=== PATIENT | male | born 1955 | race Two or more races ===

== ENCOUNTER → 2020-02-15 | Emergency (ER) | payer OTHER ==
[~2020-02-15] VITALS: Ht 172.7 cm; Wt 63.0 kg
[2020-02-16 02:24] LABS: Basophils # (auto) 0 10 ^3/uL (0-0.2); Eosinophils # (auto) 0.1 10 ^3/uL (0-0.8); Lymphocytes # (auto) 0.4 10 ^3/uL (0.4-5.4)
[2020-02-16 02:26] LABS: Basophils % (auto) 0.5 % (0.0-2.0); Eosinophils % (auto) 3.2 % (0.0-7.0); Hematocrit 45.4 % (41.0-53.0); Hemoglobin 15.9 g/dL (13.5-17.5); Lymphocytes % (auto) 11.7 % (10.0-50.0); Mean Corpuscular Hemoglobin 41.2 pg (28.0-32.0); Mean Corpuscular Hgb Conc. 35.1 g/dL (32.0-36.0); Mean Corpuscular Volume 117.5 fL (80.0-100.0); Monocytes # (auto) 0.3 10 ^3/uL (0-1.3); Monocytes % (auto) 7.3 % (0.0-12.0); Neutrophils # (auto) 2.7 10 ^3/uL (1.6-8.6); Neutrophils % (auto) 77.3 % (37.0-80.0); Nucleated Red Blood Cells % 0.2 %; Platelet Count (auto) 72 10^3/uL (140-450); Red Blood Cells 3.86 10^6/uL (4.5-5.90); Red Cell Distribution Width 16.2 % (11.8-14.3); White Blood Cell 3.5 10^3/uL (4.4-10.8)
[2020-02-16 02:39] LABS: Albumin 2.1 g/dL (3.4-5.0); Amylase 76 U/L (25-115); Anion Gap 5 (5-15); BUN/Creatinine Ratio 14.3; Blood Urea Nitrogen 11 mg/dL (7-18); Calcium 7.3 mg/dL (8.5-10.1); Carbon Dioxide 20 mmol/L (21-32); Chloride 112 mmol/L (98-107); GFR African American 130 mL/min; GFR Non-African American 108 mL/min; Glucose 80 mg/dL (74-106); Lipase 152 U/L (73-393); Potassium 3.9 mmol/L (3.5-5.1); Sodium 137 mmol/L (136-145)
[2020-02-16 02:43] LABS: Alanine Aminotransferase 28 U/L (16-61); Alkaline Phosphatase 136 U/L (45-117); Aspartate Aminotransferase 20 U/L (15-37); Bilirubin, Total 2.4 mg/dL (0.2-1.0); Total Protein 6.2 g/dL (6.4-8.2)
[2020-02-16 04:37] LABS: Urine Bacteria FEW /hpf (None Seen); Urine Mucus FEW (None Seen); Urine WBC 137 /hpf (0 - 3)
[2020-02-16 04:39] LABS: Urine Blood 3+ /uL (Negative); Urine Specific Gravity 1.018 (1.001-1.035)
[2020-02-16 06:27] LABS: INR 1.56 (0.9-1.15); Partial Thromboplastin Time 57.8 sec (23.64-32.05)
[2020-02-16 07:36] VITALS: BP 88/61
== END | disposition home or self-care (01) ==
LOC: ER 22:56
DX: D68.32 Hemorrhagic disorder due to extrinsic circulating anticoagulants (principal); K74.60 Unspecified cirrhosis of liver; J44.9 Chronic obstructive pulmonary disease, unspecified
CPT/HCPCS: 36415; 80053; 81001; 82150; 83690; 83735; 85025; 85610; 85730

== ENCOUNTER 2021-07-16 08:11 | Inpatient (IN) | payer OTHER ==
[~2021-07-16] VITALS: Ht 175.3 cm; Wt 56.0 kg
[~2021-07-16 08:11] MED LIST: AMOX500T86 PO
[2021-07-16] MEDS ORDERED: DexAMETHasone SOD PHOS 10MG/1ML VIAL INJ IV ONE ×2 (08:30→11:30)
[2021-07-16] MEDS ORDERED: cefTRIAXone 1GM/50ML D5W 50 ML IV ONE (08:30)
[2021-07-16] MEDS ORDERED: HYDROcodone-ACET 5/325MG TAB PO ONE (08:45)
[2021-07-16 10:21] LABS: Basophils # (auto) 0 10 ^3/uL (0-0.2); Eosinophils # (auto) 0 10 ^3/uL (0-0.8); Eosinophils % (auto) 0.1 % (0.0-7.0); Lymphocytes # (auto) 0.1 10 ^3/uL (0.4-5.4); Monocytes # (auto) 0.3 10 ^3/uL (0-1.3)
[2021-07-16 10:25] LABS: Basophils % (auto) 0.2 % (0.0-2.0); Hematocrit 34.6 % (41.0-53.0); Hemoglobin 12.2 g/dL (13.5-17.5); Lymphocytes % (auto) 4.6 % (10.0-50.0); Mean Corpuscular Hemoglobin 40.7 pg (28.0-32.0); Mean Corpuscular Hgb Conc. 35.2 g/dL (32.0-36.0); Mean Corpuscular Volume 115.7 fL (80.0-100.0); Monocytes % (auto) 10.4 % (0.0-12.0); Neutrophils # (auto) 2.4 10 ^3/uL (1.6-8.6); Neutrophils % (auto) 84.7 % (37.0-80.0); Nucleated Red Blood Cells % 0.1 %; Red Blood Cells 2.99 10^6/uL (4.5-5.90); Red Cell Distribution Width 17.4 % (11.8-14.3); White Blood Cell 2.9 10^3/uL (4.4-10.8)
[2021-07-16 10:37] LABS: INR 1.54 (0.9-1.15); Partial Thromboplastin Time 40.9 sec (23.6-33.0)
[2021-07-16 10:41] LABS: Albumin 1.6 g/dL (3.4-5.0); Calcium 7.7 mg/dL (8.5-10.1)
[2021-07-16 10:50] LABS: BUN/Creatinine Ratio 20.2; Bilirubin, Total 1.5 mg/dL (0.2-1.0); CRP High Sensitivity 3.5 mg/dL (< 0.3); Total Protein 5.4 g/dL (6.4-8.2)
[2021-07-16 10:50] LABS: Lactic Acid w/Reflex 2.1 mmol/L (0.4-2.0)
[2021-07-16] MEDS ORDERED: NITROGLYCERIN 0.4 MG SL TAB SL PRN (11:00)
[2021-07-16] MEDS ORDERED: MORPHINE SULFATE INJECTION 2 MG/ML SYRG IV PRN (11:00)
[2021-07-16] MEDS ORDERED: AZITHROMYCIN 500MG/ 250ML 250 ML IV ONE (11:30)
[2021-07-16] MEDS: SODIUM CHLOR 0.9% PF (SALINE LOCK) 10ML VIAL/SYR IV SCH ×2 (11:56→22:09)
[2021-07-16 13:58] LABS: Lactic Acid w/Reflex 2.3 mmol/L (0.4-2.0)
[2021-07-16] MEDS ORDERED: ALBUMIN 25% 50 ML IV ONE (14:00)
[2021-07-16] MEDS ORDERED: REMDESIVIR PER PHARMACY 0 ML IV SCH (14:30)
[2021-07-16] MEDS ORDERED: LIDOCAINE 2%HCL (LOCAL ANESTH.) INJ 20ML MDV ONE (14:39)
[2021-07-16] MEDS ORDERED: MIDAZOLAM HCL 2MG/2ML 2ml VIAL (1mg/ml) ONE (14:44)
[2021-07-16] MEDS ORDERED: fentaNYL CITRATE 100 MCG/2 ML VL ONE (14:44)
[2021-07-16] MEDS ORDERED: REMDESIVIR 200 MG in NS 210ml LOADING DOSE ADULT IV ONE (15:30)
[2021-07-16 17:08] LABS: Urine Bacteria NONE SEEN /hpf (None Seen); Urine Blood Negative /uL (Negative); Urine Mucus FEW (None Seen); Urine Specific Gravity 1.028 (1.001-1.035); Urine WBC 2 /hpf (0 - 3)
[2021-07-16 17:19] LABS: Amphetamine Screen, Urine NEGATIVE (NEGATIVE); Barbiturate Scree,Urine NEGATIVE (NEGATIVE); Benzodiazephine Screen, Urine NEGATIVE (NEGATIVE); Cannabinoid Screen, Urine NEGATIVE (NEGATIVE); Cocaine Screen, Urine NEGATIVE (NEGATIVE); Opiate Scree,Urine POSITIVE (NEGATIVE); Phencyclidine Screen, Urine NEGATIVE (NEGATIVE)
[2021-07-16] MEDS: ASCORBIC ACID 500 MG TAB PO SCH (22:22)
[2021-07-17] MEDS: DOPamine 1600MCG/ML D5W 250 ML IV SCH ×2 (04:00→20:54)
[2021-07-17 06:56] LABS: Basophils # (auto) 0 10 ^3/uL (0-0.2); Eosinophils # (auto) 0 10 ^3/uL (0-0.8); Lymphocytes # (auto) 0.2 10 ^3/uL (0.4-5.4); Mean Corpuscular Hgb Conc. 34.3 g/dL (32.0-36.0); Monocytes # (auto) 0.3 10 ^3/uL (0-1.3); White Blood Cell 4.4 10^3/uL (4.4-10.8)
[2021-07-17 06:58] LABS: Basophils % (auto) 0.2 % (0.0-2.0); Hematocrit 38.8 % (41.0-53.0); Hemoglobin 13.3 g/dL (13.5-17.5); Lymphocytes % (auto) 4.2 % (10.0-50.0); Mean Corpuscular Hemoglobin 39.2 pg (28.0-32.0); Mean Corpuscular Volume 114.2 fL (80.0-100.0); Monocytes % (auto) 6.2 % (0.0-12.0); Neutrophils % (auto) 89.4 % (37.0-80.0); Red Cell Distribution Width 17.6 % (11.8-14.3)
[2021-07-17] MEDS: SODIUM CHLOR 0.9% PF (SALINE LOCK) 10ML VIAL/SYR IV SCH ×3 (07:03→22:06)
[2021-07-17 07:14] LABS: Albumin 1.9 g/dL (3.4-5.0); Calcium 7.3 mg/dL (8.5-10.1); Potassium 4.4 mmol/L (3.5-5.1)
[2021-07-17 07:17] LABS: BUN/Creatinine Ratio 20.8; Bilirubin, Total 1.4 mg/dL (0.2-1.0); Total Protein 5.8 g/dL (6.4-8.2)
[2021-07-17] MEDS: cefTRIAXone 1GM/50ML D5W 50 ML IV SCH (09:32)
[2021-07-17] MEDS: DexAMETHasone SOD PHOS 10MG/1ML VIAL INJ IV SCH (09:32)
[2021-07-17] MEDS: ASCORBIC ACID 500 MG TAB PO SCH ×2 (09:34→23:22)
[2021-07-17] MEDS: CHOLECALCIFEROL (VITD3) 2,000 UNIT CAP/TAB PO SCH (09:34)
[2021-07-17] MEDS: ZINC SULFATE 220mg CAP or TAB PO SCH (09:34)
[2021-07-17] MEDS: AZITHROMYCIN 500MG/ 250ML 250 ML IV SCH (10:54)
[2021-07-17] MEDS: REMDESIVIR 100mg 100 MG in SODIUM CHL 0.9% 230 ML IV SCH (16:04)
[2021-07-17] MEDS ORDERED: Ensure HIGH Protein Chocolate 8oz Bottle PO ONE (18:30)
[2021-07-18] MEDS: TEMAZEPAM 15 MG CAP PO PRN ×2 (01:19→23:20)
[2021-07-18] MEDS: SODIUM CHLOR 0.9% PF (SALINE LOCK) 10ML VIAL/SYR IV SCH ×3 (06:08→20:49)
[2021-07-18 07:14] LABS: Calcium 7.9 mg/dL (8.5-10.1); Potassium 4.2 mmol/L (3.5-5.1)
[2021-07-18 07:16] LABS: Albumin 1.9 g/dL (3.4-5.0); BUN/Creatinine Ratio 30.6
[2021-07-18 07:26] LABS: Total Protein 5.8 g/dL (6.4-8.2)
[2021-07-18] MEDS: Ensure HIGH Protein Chocolate 8oz Bottle PO SCH ×3 (08:00→18:11)
[2021-07-18] MEDS: cefTRIAXone 1GM/50ML D5W 50 ML IV SCH (09:00)
[2021-07-18] MEDS: ZINC SULFATE 220mg CAP or TAB PO SCH (10:00)
[2021-07-18] MEDS: ASCORBIC ACID 500 MG TAB PO SCH ×2 (10:00→22:00)
[2021-07-18] MEDS: CHOLECALCIFEROL (VITD3) 2,000 UNIT CAP/TAB PO SCH (10:00)
[2021-07-18] MEDS: DexAMETHasone SOD PHOS 10MG/1ML VIAL INJ IV SCH (10:00)
[2021-07-18] MEDS: AZITHROMYCIN 500MG/ 250ML 250 ML IV SCH (10:00)
[2021-07-18] MEDS: REMDESIVIR 100mg 100 MG in SODIUM CHL 0.9% 230 ML IV SCH (15:17)
[2021-07-18] MEDS: DOPamine 1600MCG/ML D5W 250 ML IV SCH (20:48)
[2021-07-19] MEDS: SODIUM CHLOR 0.9% PF (SALINE LOCK) 10ML VIAL/SYR IV SCH ×3 (03:52→21:44)
[2021-07-19] MEDS: Ensure HIGH Protein Chocolate 8oz Bottle PO SCH ×3 (08:00→20:29)
[2021-07-19] MEDS: cefTRIAXone 1GM/50ML D5W 50 ML IV SCH ×2 (09:11→10:11)
[2021-07-19] MEDS: DexAMETHasone SOD PHOS 10MG/1ML VIAL INJ IV SCH (10:00)
[2021-07-19] MEDS: ZINC SULFATE 220mg CAP or TAB PO SCH (10:00)
[2021-07-19] MEDS: AZITHROMYCIN 500MG/ 250ML 250 ML IV SCH (10:00)
[2021-07-19] MEDS: CHOLECALCIFEROL (VITD3) 2,000 UNIT CAP/TAB PO SCH (10:00)
[2021-07-19] MEDS: ASCORBIC ACID 500 MG TAB PO SCH ×2 (10:00→21:45)
[2021-07-19] MEDS ORDERED: URSO1TAB8 PO (10:01)
[2021-07-19] MEDS ORDERED: URSO1TAB7 PO (10:01)
[2021-07-19] MEDS ORDERED: HYDR-4072 PO (10:03)
[2021-07-19] MEDS ORDERED: MERC50TA PO (10:05)
[2021-07-19] MEDS ORDERED: POTA10TA32 PO (10:20)
[2021-07-19] MEDS ORDERED: FURO1TAB33 PO (10:20)
[2021-07-19] MEDS ORDERED: DABI150C5 PO (10:20)
[2021-07-19] MEDS ORDERED: ALBU108A5 IN (10:34)
[2021-07-19] MEDS ORDERED: FLUT1AER6 IN (10:34)
[2021-07-19] MEDS ORDERED: NICO1DIS32 TD (10:34)
[2021-07-19] MEDS ORDERED: PRED10TA PO (10:34)
[2021-07-19] MEDS: MIDODRINE HCL 10 MG TAB PO SCH ×2 (11:47→20:35)
[2021-07-19] MEDS: REMDESIVIR 100mg 100 MG in SODIUM CHL 0.9% 230 ML IV SCH (15:00)
[2021-07-19 16:08] LABS: Calcium 7.9 mg/dL (8.5-10.1)
[2021-07-19 16:11] LABS: Albumin 1.9 g/dL (3.4-5.0); BUN/Creatinine Ratio 26.7
[2021-07-19 16:13] LABS: Bilirubin, Total 3.4 mg/dL (0.2-1.0)
[2021-07-19 16:31] LABS: Basophils # (auto) 0.1 10 ^3/uL (0-0.2); Basophils % (auto) 1.5 % (0.0-2.0); Eosinophils # (auto) 0 10 ^3/uL (0-0.8); Eosinophils % (auto) 0.1 % (0.0-7.0); Hematocrit 47.1 % (41.0-53.0); Hemoglobin 16.4 g/dL (13.5-17.5); Lymphocytes # (auto) 0.2 10 ^3/uL (0.4-5.4); Lymphocytes % (auto) 3.6 % (10.0-50.0); Mean Corpuscular Hemoglobin 38.2 pg (28.0-32.0); Mean Corpuscular Hgb Conc. 34.8 g/dL (32.0-36.0); Monocytes # (auto) 0.4 10 ^3/uL (0-1.3); Monocytes % (auto) 6.8 % (0.0-12.0); Neutrophils # (auto) 4.9 10 ^3/uL (1.6-8.6); Nucleated Red Blood Cells % 0.3 %; Red Blood Cells 4.28 10^6/uL (4.5-5.90); Red Cell Distribution Width 16.9 % (11.8-14.3); White Blood Cell 5.6 10^3/uL (4.4-10.8)
[2021-07-19] MEDS: DOPamine 1600MCG/ML D5W 250 ML IV SCH (21:02)
[2021-07-20] MEDS: SODIUM CHLOR 0.9% PF (SALINE LOCK) 10ML VIAL/SYR IV SCH ×4 (06:00→22:35)
[2021-07-20] MEDS: MIDODRINE HCL 10 MG TAB PO SCH ×3 (06:21→18:00)
[2021-07-20 07:45] LABS: Basophils # (auto) 0 10 ^3/uL (0-0.2); Basophils % (auto) 0.1 % (0.0-2.0); Eosinophils # (auto) 0 10 ^3/uL (0-0.8); Hematocrit 46.5 % (41.0-53.0); Hemoglobin 16.5 g/dL (13.5-17.5); Lymphocytes # (auto) 0.4 10 ^3/uL (0.4-5.4); Lymphocytes % (auto) 7.4 % (10.0-50.0); Mean Corpuscular Hemoglobin 39.3 pg (28.0-32.0); Mean Corpuscular Hgb Conc. 35.6 g/dL (32.0-36.0); Mean Corpuscular Volume 110.3 fL (80.0-100.0); Monocytes # (auto) 0.9 10 ^3/uL (0-1.3); Monocytes % (auto) 15.4 % (0.0-12.0); Neutrophils # (auto) 4.5 10 ^3/uL (1.6-8.6); Neutrophils % (auto) 77.1 % (37.0-80.0); Red Blood Cells 4.21 10^6/uL (4.5-5.90); Red Cell Distribution Width 17.3 % (11.8-14.3); White Blood Cell 5.8 10^3/uL (4.4-10.8)
[2021-07-20] MEDS: Ensure HIGH Protein Chocolate 8oz Bottle PO SCH ×3 (08:00→18:00)
[2021-07-20] MEDS: ZINC SULFATE 220mg CAP or TAB PO SCH (10:00)
[2021-07-20] MEDS: DexAMETHasone SOD PHOS 10MG/1ML VIAL INJ IV SCH (10:00)
[2021-07-20] MEDS: ASCORBIC ACID 500 MG TAB PO SCH ×2 (10:00→22:35)
[2021-07-20] MEDS: CHOLECALCIFEROL (VITD3) 2,000 UNIT CAP/TAB PO SCH (10:00)
[2021-07-20] MEDS: AZITHROMYCIN 500MG/ 250ML 250 ML IV SCH (11:00)
[2021-07-20 11:30] LABS: Calcium 7.9 mg/dL (8.5-10.1); Potassium 3.9 mmol/L (3.5-5.1)
[2021-07-20 11:34] LABS: BUN/Creatinine Ratio 26.3; Bilirubin, Total 4.4 mg/dL (0.2-1.0); Total Protein 6.5 g/dL (6.4-8.2)
[2021-07-20] MEDS ORDERED: LIDOCAINE 1% (LOCAL ANESTH.) PF 5ml SDV ID ONE (12:15)
[2021-07-20] MEDS: REMDESIVIR 100mg 100 MG in SODIUM CHL 0.9% 230 ML IV SCH (15:00)
[2021-07-20] MEDS: DOPamine 1600MCG/ML D5W 250 ML IV SCH (20:15)
[2021-07-21] VITALS (28 sets, daily range): BP systolic 93–135; BP diastolic 54–77
[2021-07-21] MEDS: MIDODRINE HCL 10 MG TAB PO SCH ×3 (06:21→20:00)
[2021-07-21] MEDS: SODIUM CHLOR 0.9% PF (SALINE LOCK) 10ML VIAL/SYR IV SCH ×4 (06:21→22:00)
[2021-07-21 06:51] LABS: Basophils # (auto) 0 10 ^3/uL (0-0.2); Basophils % (auto) 0.4 % (0.0-2.0); Eosinophils # (auto) 0 10 ^3/uL (0-0.8); Hematocrit 44.5 % (41.0-53.0); Hemoglobin 15.4 g/dL (13.5-17.5); Lymphocytes # (auto) 0.3 10 ^3/uL (0.4-5.4); Lymphocytes % (auto) 5.5 % (10.0-50.0); Mean Corpuscular Hemoglobin 38.1 pg (28.0-32.0); Mean Corpuscular Hgb Conc. 34.7 g/dL (32.0-36.0); Mean Corpuscular Volume 109.8 fL (80.0-100.0); Monocytes # (auto) 0.9 10 ^3/uL (0-1.3); Monocytes % (auto) 15.6 % (0.0-12.0); Neutrophils # (auto) 4.5 10 ^3/uL (1.6-8.6); Neutrophils % (auto) 78.5 % (37.0-80.0); Nucleated Red Blood Cells % 0.4 %; Red Blood Cells 4.05 10^6/uL (4.5-5.90); Red Cell Distribution Width 16.8 % (11.8-14.3); White Blood Cell 5.7 10^3/uL (4.4-10.8)
[2021-07-21] MEDS: Ensure HIGH Protein Chocolate 8oz Bottle PO SCH ×2 (08:00→13:18)
[2021-07-21] MEDS: cefTRIAXone 1GM/50ML D5W 50 ML IV SCH (09:00)
[2021-07-21] MEDS: ASCORBIC ACID 500 MG TAB PO SCH ×2 (10:15→22:00)
[2021-07-21] MEDS: AZITHROMYCIN 500MG/ 250ML 250 ML IV SCH (10:15)
[2021-07-21] MEDS: DexAMETHasone SOD PHOS 10MG/1ML VIAL INJ IV SCH (10:15)
[2021-07-21] MEDS: ZINC SULFATE 220mg CAP or TAB PO SCH (10:15)
[2021-07-21] MEDS: CHOLECALCIFEROL (VITD3) 2,000 UNIT CAP/TAB PO SCH (10:15)
[2021-07-21] MEDS: DOPamine 1600MCG/ML D5W 250 ML IV SCH ×2 (13:25→20:00)
[2021-07-21] MEDS ORDERED: NITROGLYCERIN 0.4 MG SL TAB SL PRN (20:00)
[2021-07-21] MEDS ORDERED: MORPHINE SULFATE INJECTION 2 MG/ML SYRG IV PRN (20:00)
[2021-07-21] MEDS: TEMAZEPAM 15 MG CAP PO PRN (23:26)
[2021-07-22] VITALS (83 sets, daily range): BP systolic 73–135; BP diastolic 44–85
[2021-07-22 03:57] LABS: Basophils # (auto) 0 10 ^3/uL (0-0.2); Hemoglobin 14.5 g/dL (13.5-17.5); Lymphocytes # (auto) 0.2 10 ^3/uL (0.4-5.4); Monocytes # (auto) 0.6 10 ^3/uL (0-1.3); Nucleated Red Blood Cells % 0.1 %; White Blood Cell 5.2 10^3/uL (4.4-10.8)
[2021-07-22 03:59] LABS: Basophils % (auto) 0.4 % (0.0-2.0); Eosinophils # (auto) 0.1 10 ^3/uL (0-0.8); Eosinophils % (auto) 1.1 % (0.0-7.0); Hematocrit 40.6 % (41.0-53.0); Lymphocytes % (auto) 3.7 % (10.0-50.0); Mean Corpuscular Hemoglobin 40.5 pg (28.0-32.0); Mean Corpuscular Hgb Conc. 35.7 g/dL (32.0-36.0); Mean Corpuscular Volume 113.6 fL (80.0-100.0); Monocytes % (auto) 10.8 % (0.0-12.0); Neutrophils # (auto) 4.4 10 ^3/uL (1.6-8.6); Red Blood Cells 3.58 10^6/uL (4.5-5.90); Red Cell Distribution Width 16.6 % (11.8-14.3)
[2021-07-22] MEDS: MIDODRINE HCL 10 MG TAB PO SCH ×3 (06:00→18:00)
[2021-07-22] MEDS: DOPamine 1600MCG/ML D5W 250 ML IV SCH (06:25)
[2021-07-22] MEDS: Ensure HIGH Protein Chocolate 8oz Bottle PO SCH ×3 (08:00→18:00)
[2021-07-22] MEDS: cefTRIAXone 1GM/50ML D5W 50 ML IV SCH (09:03)
[2021-07-22 09:13] LABS: Free T3 1.09 pg/mL (2.3-4.2); Free T4 (Free Thyroxine) 0.86 ng/dL (0.89-1.76)
[2021-07-22] MEDS ORDERED: LEVOTHYROXINE SODIUM 100 MCG/5 ML INJ IV ONE (09:30)
[2021-07-22] MEDS: ASCORBIC ACID 500 MG TAB PO SCH ×2 (09:48→21:53)
[2021-07-22] MEDS: CHOLECALCIFEROL (VITD3) 2,000 UNIT CAP/TAB PO SCH (09:48)
[2021-07-22] MEDS: DexAMETHasone SOD PHOS 10MG/1ML VIAL INJ IV SCH (09:48)
[2021-07-22] MEDS: SODIUM CHLOR 0.9% PF (SALINE LOCK) 10ML VIAL/SYR IV SCH ×2 (09:49→21:53)
[2021-07-22] MEDS: ZINC SULFATE 220mg CAP or TAB PO SCH (09:49)
[2021-07-22] MEDS: AZITHROMYCIN 500MG/ 250ML 250 ML IV SCH (09:49)
[2021-07-22] MEDS ORDERED: TPN PER PHARMACY 0 ML IV SCH (10:15)
[2021-07-22 11:36] LABS: Basophils # (auto) 0 10 ^3/uL (0-0.2); Eosinophils # (auto) 0 10 ^3/uL (0-0.8); Lymphocytes # (auto) 0.2 10 ^3/uL (0.4-5.4); Monocytes # (auto) 0.7 10 ^3/uL (0-1.3)
[2021-07-22 11:38] LABS: Basophils % (auto) 0.6 % (0.0-2.0); Hematocrit 38.3 % (41.0-53.0); Hemoglobin 13.5 g/dL (13.5-17.5); Lymphocytes % (auto) 2.9 % (10.0-50.0); Mean Corpuscular Hemoglobin 38.9 pg (28.0-32.0); Mean Corpuscular Hgb Conc. 35.2 g/dL (32.0-36.0); Monocytes % (auto) 12.2 % (0.0-12.0); Neutrophils # (auto) 4.8 10 ^3/uL (1.6-8.6); Neutrophils % (auto) 84.3 % (37.0-80.0); Red Blood Cells 3.47 10^6/uL (4.5-5.90); Red Cell Distribution Width 16.6 % (11.8-14.3); White Blood Cell 5.7 10^3/uL (4.4-10.8)
[2021-07-22 11:43] LABS: Mean Corpuscular Volume 110.6 fL (80.0-100.0)
[2021-07-22 11:51] LABS: INR 1.94 (0.9-1.15); Partial Thromboplastin Time 43.9 sec (23.6-33.0)
[2021-07-22 11:58] LABS: Albumin 1.6 g/dL (3.4-5.0); BUN/Creatinine Ratio 37.5; Calcium 7.1 mg/dL (8.5-10.1); Magnesium 1.9 mg/dL (1.6-2.6); Potassium 3.6 mmol/L (3.5-5.1)
[2021-07-22 12:02] LABS: Bilirubin, Total 4.1 mg/dL (0.2-1.0); Phosphorus 2.9 mg/dL (2.5-4.90); Total Protein 5.2 g/dL (6.4-8.2)
[2021-07-22 12:08] LABS: Folate (Folic Acid) 9.74 ng/mL (5.38-24)
[2021-07-22 12:11] LABS: Pre Albumin 6.7 mg/dL (20.0-40.0)
[2021-07-22] MEDS: LORazepam 2MG/ML-1ML VIAL IV PRN ×2 (14:05→20:42)
[2021-07-22] MEDS ORDERED: TPN PER PHARMACY IV NR ×9 (20:00)
[2021-07-23] VITALS (91 sets, daily range): BP systolic 77–134; BP diastolic 47–81
[2021-07-23] MEDS ORDERED: DEXTROSE (50%) 50ML SYRG IV SCH
[2021-07-23] MEDS: DOPamine 1600MCG/ML D5W 250 ML IV SCH ×2 (00:24→16:28)
[2021-07-23] MEDS: MIDODRINE HCL 10 MG TAB PO SCH ×3 (05:36→21:58)
[2021-07-23 05:37] LABS: Albumin 1.7 g/dL (3.4-5.0); Calcium 7.2 mg/dL (8.5-10.1); Magnesium 2.8 mg/dL (1.6-2.6)
[2021-07-23] MEDS: InsuLIN REG 1unit/0.01ml Soln (100units/ml) SC SCH ×4 (05:37→17:16)
[2021-07-23] MEDS: ACCU-CHEK COMFORT CURVE STRIP VI SCH ×4 (05:37→17:15)
[2021-07-23 05:41] LABS: BUN/Creatinine Ratio 33.3; Bilirubin, Total 4.4 mg/dL (0.2-1.0); Total Protein 5.6 g/dL (6.4-8.2)
[2021-07-23] MEDS: cefTRIAXone 1GM/50ML D5W 50 ML IV SCH (07:48)
[2021-07-23] MEDS: Ensure HIGH Protein Chocolate 8oz Bottle PO SCH ×3 (08:00→17:16)
[2021-07-23] MEDS: AZITHROMYCIN 500MG/ 250ML 250 ML IV SCH (08:56)
[2021-07-23] MEDS: ASCORBIC ACID 500 MG TAB PO SCH ×2 (09:49→21:59)
[2021-07-23] MEDS: CHOLECALCIFEROL (VITD3) 2,000 UNIT CAP/TAB PO SCH (09:49)
[2021-07-23] MEDS: LEVOTHYROXINE SODIUM 100 MCG/5 ML INJ IV SCH (09:49)
[2021-07-23] MEDS: DexAMETHasone SOD PHOS 10MG/1ML VIAL INJ IV SCH (09:49)
[2021-07-23] MEDS: SODIUM CHLOR 0.9% PF (SALINE LOCK) 10ML VIAL/SYR IV SCH ×2 (09:49→21:58)
[2021-07-23] MEDS: ZINC SULFATE 220mg CAP or TAB PO SCH (09:49)
[2021-07-23] MEDS ORDERED: PANTOPRAZOLE 40 MG TAB PO ONE (11:45)
[2021-07-23] MEDS ORDERED: TPN PER PHARMACY IV NR ×8 (20:00)
[2021-07-23] MEDS: TEMAZEPAM 15 MG CAP PO PRN (21:58)
[2021-07-23] MEDS: MIRTAZAPINE 30 MG TAB PO SCH (21:59)
[2021-07-24] VITALS (85 sets, daily range): BP systolic 74–134; BP diastolic 46–80
[2021-07-24 05:05] LABS: Potassium 3.6 mmol/L (3.5-5.1)
[2021-07-24 05:13] LABS: Albumin 1.5 g/dL (3.4-5.0); Bilirubin, Total 3.8 mg/dL (0.2-1.0); Calcium 6.8 mg/dL (8.5-10.1); Magnesium 2.4 mg/dL (1.6-2.6); Phosphorus 2.1 mg/dL (2.5-4.90)
[2021-07-24] MEDS: ACCU-CHEK COMFORT CURVE STRIP VI SCH ×5 (06:00→22:08)
[2021-07-24] MEDS: InsuLIN REG 1unit/0.01ml Soln (100units/ml) SC SCH ×4 (06:00→18:08)
[2021-07-24] MEDS: Ensure HIGH Protein Chocolate 8oz Bottle PO SCH ×3 (08:00→18:07)
[2021-07-24] MEDS: cefTRIAXone 1GM/50ML D5W 50 ML IV SCH (09:14)
[2021-07-24] MEDS ORDERED: POTASSIUM PHOSP 22MEQ(15MMOLE) in NS 100 ML IV ONE (09:15)
[2021-07-24] MEDS: ZINC SULFATE 220mg CAP or TAB PO SCH (10:00)
[2021-07-24] MEDS: PANTOPRAZOLE 40 MG TAB PO SCH (10:00)
[2021-07-24] MEDS: CHOLECALCIFEROL (VITD3) 2,000 UNIT CAP/TAB PO SCH (10:00)
[2021-07-24] MEDS: ASCORBIC ACID 500 MG TAB PO SCH ×2 (10:00→21:04)
[2021-07-24] MEDS: MIDODRINE HCL 10 MG TAB PO SCH ×2 (10:00→21:09)
[2021-07-24] MEDS: SODIUM CHLOR 0.9% PF (SALINE LOCK) 10ML VIAL/SYR IV SCH ×2 (10:06→21:07)
[2021-07-24] MEDS: LEVOTHYROXINE SODIUM 100 MCG/5 ML INJ IV SCH (10:06)
[2021-07-24] MEDS: DexAMETHasone SOD PHOS 10MG/1ML VIAL INJ IV SCH (10:06)
[2021-07-24] MEDS: AZITHROMYCIN 500MG/ 250ML 250 ML IV SCH (12:00)
[2021-07-24] MEDS ORDERED: TPN PER PHARMACY IV NR ×9 (20:00)
[2021-07-24] MEDS: TEMAZEPAM 15 MG CAP PO PRN (21:04)
[2021-07-24] MEDS: MIRTAZAPINE 30 MG TAB PO SCH (21:04)
[2021-07-25] VITALS (82 sets, daily range): BP systolic 86–131; BP diastolic 50–84
[2021-07-25] MEDS: InsuLIN REG 1unit/0.01ml Soln (100units/ml) SC SCH ×4 (00:20→12:13)
[2021-07-25] MEDS: ACCU-CHEK COMFORT CURVE STRIP VI SCH ×2 (05:06→12:16)
[2021-07-25 05:50] LABS: Basophils # (auto) 0.1 10 ^3/uL (0-0.2); Basophils % (auto) 1.2 % (0.0-2.0); Eosinophils # (auto) 0.3 10 ^3/uL (0-0.8); Eosinophils % (auto) 4.1 % (0.0-7.0); Hemoglobin 13.7 g/dL (13.5-17.5); Lymphocytes # (auto) 0.2 10 ^3/uL (0.4-5.4); Lymphocytes % (auto) 2.9 % (10.0-50.0); Mean Corpuscular Hemoglobin 39.8 pg (28.0-32.0); Mean Corpuscular Hgb Conc. 35.2 g/dL (32.0-36.0); Mean Corpuscular Volume 113.1 fL (80.0-100.0); Monocytes # (auto) 0.5 10 ^3/uL (0-1.3); Monocytes % (auto) 8.9 % (0.0-12.0); Neutrophils # (auto) 5.1 10 ^3/uL (1.6-8.6); Neutrophils % (auto) 82.9 % (37.0-80.0); Red Blood Cells 3.45 10^6/uL (4.5-5.90); Red Cell Distribution Width 16.3 % (11.8-14.3); White Blood Cell 6.1 10^3/uL (4.4-10.8)
[2021-07-25 06:09] LABS: Albumin 1.7 g/dL (3.4-5.0); Calcium 7.6 mg/dL (8.5-10.1); Magnesium 2.6 mg/dL (1.6-2.6)
[2021-07-25 06:13] LABS: Bilirubin, Total 3.8 mg/dL (0.2-1.0); Phosphorus 2.8 mg/dL (2.5-4.90); Total Protein 5.4 g/dL (6.4-8.2)
[2021-07-25] MEDS: Ensure HIGH Protein Chocolate 8oz Bottle PO SCH ×3 (08:00→18:00)
[2021-07-25] MEDS: cefTRIAXone 1GM/50ML D5W 50 ML IV SCH (09:06)
[2021-07-25] MEDS: DexAMETHasone SOD PHOS 10MG/1ML VIAL INJ IV SCH (09:16)
[2021-07-25] MEDS: LEVOTHYROXINE SODIUM 100 MCG/5 ML INJ IV SCH (09:17)
[2021-07-25] MEDS: MIDODRINE HCL 10 MG TAB PO SCH ×2 (09:19→22:42)
[2021-07-25] MEDS: PANTOPRAZOLE 40 MG TAB PO SCH (09:19)
[2021-07-25] MEDS: CHOLECALCIFEROL (VITD3) 2,000 UNIT CAP/TAB PO SCH (09:20)
[2021-07-25] MEDS: ASCORBIC ACID 500 MG TAB PO SCH ×2 (09:20→22:43)
[2021-07-25] MEDS: AZITHROMYCIN 500MG/ 250ML 250 ML IV SCH (09:53)
[2021-07-25] MEDS: ZINC SULFATE 220mg CAP or TAB PO SCH (09:57)
[2021-07-25] MEDS: SODIUM CHLOR 0.9% PF (SALINE LOCK) 10ML VIAL/SYR IV SCH ×2 (09:57→22:44)
[2021-07-25] MEDS ORDERED: MORPHINE SULFATE INJECTION 2 MG/ML SYRG ONE (14:54)
[2021-07-25] MEDS ORDERED: MORPHINE SULFATE INJECTION 2 MG/ML SYRG IV PRN ×2 (15:00→15:45)
[2021-07-25] MEDS ORDERED: MORPHINE SULFATE INJECTION 2 MG/ML SYRG IV ONE (15:00)
[2021-07-25] MEDS: DOPamine 1600MCG/ML D5W 250 ML IV SCH (15:46)
[2021-07-25] MEDS: LORazepam 2MG/ML-1ML VIAL IV PRN (17:57)
[2021-07-25] MEDS ORDERED: TPN PER PHARMACY IV NR ×8 (20:00)
[2021-07-25] MEDS: MIRTAZAPINE 30 MG TAB PO SCH (22:43)
[2021-07-26] VITALS (68 sets, daily range): BP systolic 77–119; BP diastolic 45–81
[2021-07-26] MEDS: ACCU-CHEK COMFORT CURVE STRIP VI SCH ×3 (00:20→05:50)
[2021-07-26] MEDS: InsuLIN REG 1unit/0.01ml Soln (100units/ml) SC SCH ×3 (00:29→05:50)
[2021-07-26] MEDS: TEMAZEPAM 15 MG CAP PO PRN (00:31)
[2021-07-26 05:52] LABS: Albumin 1.8 g/dL (3.4-5.0); Magnesium 2.5 mg/dL (1.6-2.6); Potassium 3.7 mmol/L (3.5-5.1)
[2021-07-26 05:57] LABS: BUN/Creatinine Ratio 45.8; Bilirubin, Total 4.8 mg/dL (0.2-1.0); Phosphorus 2.7 mg/dL (2.5-4.90); Total Protein 5.4 g/dL (6.4-8.2)
[2021-07-26] MEDS: Ensure HIGH Protein Chocolate 8oz Bottle PO SCH (07:56)
[2021-07-26] MEDS: DexAMETHasone SOD PHOS 10MG/1ML VIAL INJ IV SCH (10:00)
[2021-07-26] MEDS: CHOLECALCIFEROL (VITD3) 2,000 UNIT CAP/TAB PO SCH (10:00)
[2021-07-26] MEDS ORDERED: PANTOPRAZOLE 40 MG/10 ML VIAL INJ IV SCH (10:00)
[2021-07-26] MEDS: SODIUM CHLOR 0.9% PF (SALINE LOCK) 10ML VIAL/SYR IV SCH (10:00)
== END 2021-07-26 21:45 | disposition hospice, home (50) | DRG 177 ==
LOC: ER 08:11 → EDBD 08:11 → EDUNIT# 08:11 → TELE 10:46 → DOU IN ICU 07-21 17:35
PROVIDERS: ADMIT Internal Medicine; ATTEND Internal Medicine
PROC: 0W9930Z Drainage of Right Pleural Cavity with Drainage Device, Percutaneous Approach (ICD-10-PCS; principal; 2021-07-16)
PROC: XW033E5 Introduction of Remdesivir Anti-infective into Peripheral Vein, Percutaneous Approach, New Technology Group 5 (ICD-10-PCS; 2021-07-16)
PROC: 02HV33Z Insertion of Infusion Device into Superior Vena Cava, Percutaneous Approach (ICD-10-PCS; 2021-07-20)
PROC: 5A0935A Assistance with Respiratory Ventilation, Less than 24 Consecutive Hours, High Flow/Velocity Cannula (ICD-10-PCS; 2021-07-22)
DX: U07.1 COVID-19 (principal); J12.82 Pneumonia due to coronavirus disease 2019; J96.21 Acute and chronic respiratory failure with hypoxia; E43 Unspecified severe protein-calorie malnutrition; J93.9 Pneumothorax, unspecified; D61.818 Other pancytopenia; G93.1 Anoxic brain damage, not elsewhere classified; Z68.1 Body mass index [BMI] 19.9 or less, adult; I95.9 Hypotension, unspecified; E55.9 Vitamin D deficiency, unspecified; K70.30 Alcoholic cirrhosis of liver without ascites; R00.1 Bradycardia, unspecified; D69.6 Thrombocytopenia, unspecified; F32.A Depression, unspecified; E03.9 Hypothyroidism, unspecified; J43.9 Emphysema, unspecified; Z20.822 Contact with and (suspected) exposure to COVID-19; Z87.891 Personal history of nicotine dependence
CPT/HCPCS: 10022; 36415; 36569; 36600; 71045; 71250; 77012; 80053; 80307; 81001; 82040; 82306; 82607; 82728; 82746; 82805; 82962; 83605; 83615; 83735; 83880; 83986; 84100; 84439; 84443; 84478; 84481; 84484; 85025; 85379; 85610; 85730; 86141; 87040; 87081; 87205; 87426; 89051; 93005; 93306; 93970; 96365; 96375; 99291; A4223; C1729; C9113; G0378; J0696; J1100; J1815; J2250; J3490